=== PATIENT | female | born 1950 | race Caucasian/White ===

== ENCOUNTER 2021-03-25 08:19 | Emergency (ER) | payer MEDICARE ==
[~2021-03-25] VITALS: Ht 167.6 cm; Wt 113.4 kg
[2021-03-25 10:49] LABS: HEMOGLOBIN 13.8 gm/dl (12.3-15.3); RED BLOOD COUNT 4.23 M/UL (4.00-5.10); WHITE BLOOD COUNT 3.5 K/UL (4.5-11.0)
== END 2021-03-25 14:00 | disposition home or self-care (01) ==
LOC: ER1 08:19
PROVIDERS: Physician Assistant Medical
DX: U07.1 COVID-19 (principal); Z23 Encounter for immunization; J44.9 Chronic obstructive pulmonary disease, unspecified; Z87.891 Personal history of nicotine dependence
CPT/HCPCS: 71045; 80053; 85025; 99284; M0243; U0002

== ENCOUNTER → 2021-04-08 | Outpatient (CLI) | payer MEDICARE, OTHER | LOC: KOH-I 12:11 | DX: M25.512 Pain in left shoulder (principal); R07.9 Chest pain, unspecified | CPT/HCPCS: 71046; 73000; 73030 ==

== ENCOUNTER → 2021-09-23 | Outpatient (CLI) | payer MEDICARE, OTHER | LOC: HEART 5 09-21 15:00 | DX: R00.1 Bradycardia, unspecified (principal); I10 Essential (primary) hypertension; R06.02 Shortness of breath | CPT/HCPCS: 93306 ==